=== PATIENT | female | born 1990 | race African-American/Black ===

== ENCOUNTER 2017-04-02 20:09 | Emergency (ER) | payer OTHER ==
[~2017-04-02] VITALS: Ht 162.6 cm; Wt 56.7 kg
[2017-04-02] MEDS ORDERED: PLAN B ONE-STE1.5 MG PO (21:06)
== END 2017-04-02 21:13 | disposition home or self-care (01) ==
LOC: ED 20:09
DX: N89.8 Other specified noninflammatory disorders of vagina (principal); Z98.890 Other specified postprocedural states
CPT/HCPCS: 84703; 87491; 87591; 99284

== ENCOUNTER 2017-12-24 00:16 | Observation (INO) | payer OTHER ==
[~2017-12-24] VITALS: Ht 162.6 cm; Wt 94.8 kg
--- OUTSIDE RECORDS SUMMARY | ~2017-12-24 | XMS | Clinical Summary ---
Demographics + + + | Address | [address] | | | [place] [address] | + + + | Home Phone | | + + + | Preferred Language | Unknown | + + + | Marital Status | Single | + + + | Zoroastrianism Affiliation | Unknown | + + + | Race | Unknown | + + + | Ethnic Group | Unknown | + + + Author + + + | Author | [facility] | | | and [place] | + + + | Organization | [facility] | | | and [place] | + + + | Address | Unknown | + + + | Phone | Unavailable | + + + Support + + +---------+ + | Name | Relationship | Address | Phone | + + +---------+ + | Staci Dalal | ECON | Unknown | | + + +---------+ + Care Team Providers + +------+ + | Care Clinical Laboratory Scientist Name | Role | Phone | + +------+ + | Dayna Cervantes MD | PP | Unavailable | + +------+ + Allergies + + + + + + | Active Allergy | Reactions | Severity | Noted | Comments | | | | | Date | | + + + + + + | Latex | Itching | Low | 01/02/20 | | | | | | 14 | | + + + + + + Current Medications + + + +---------+------+------+-------+ | Prescription | Sig. | Disp. | Refills | Star | End | Statu | | | | | | t | Date | s | | | | | | Date | | | + + + +---------+------+------+-------+ | diphenhydrAMINE | Apply topically 3 | | | | | Activ | | (BENADRYL EXTRA | times daily as | | | | | e | | STRENGTH) cream | needed for Itching. | | | | | | + + + +---------+------+------+-------+ | Promethazine-DM | Take 5-10 mLs by | 120 mL | 0 | 07/1 | | Activ | | (PROMETHAZINE-DEXTRO | mouth 4 times daily | | | 3/20 | | e | | METHORPHAN) 6.25-15 | as needed for Cough. | | | 17 | | | | mg/5 mL liquid | | | | | | | + + + +---------+------+------+-------+ | pseudoePHEDrine | Take 1 tablet by | 60 | 0 | 07/1 | | Activ | | (SUDAFED) 60 MG | mouth every 6 hours | tablet | | 11/20 | | e | | tablet | as needed for | | | 17 | | | | | Congestion. | | | | | | + + + +---------+------+------+-------+ Active Problems + + + | Problem | Noted Date | + + + | Fever | 11/11/2012 | + + + | PELVIC INFLAMMATORY DISEASE, ACUTE | 02/13/2012 | + + + Social History + + + +--------+ + | Tobacco Use | Types | Packs/Day | Years | Date | | | | | Used | | + + + +--------+ + | Former Smoker | Cigarettes | | | Quit: 09/11/2011 | + + + +--------+ + + +---+---+---+ | Smokeless Tobacco: | | | | | Never Used | | | | + +---+---+---+ + + +---------+ + | Alcohol Use | Drinks/We | oz/Week | Comments | | | ek | | | + + +---------+ + | Yes | 1 | 0.6 | | | | Glasses | | | | | of wine | | | + + +---------+ + + + + | Sex Assigned at | Date Recorded | | | | + + + | Not on file | | + + + Last Filed Vital Signs + + + + | Vital Sign | Reading | Time Taken | + + + + | Blood Pressure | 141/86 | 03/15/20172029 PDT | + + + + | Pulse | 87 | 03/15/20172029 PDT | + + + + | Temperature | 36.9 C (98.5 F) | 03/15/20172034 PDT | + + + + | Respiratory Rate | 16 | 03/15/20172029 PDT | + + + + | Oxygen Saturation | 99% | 03/15/20172029 PDT | + + + + | Inhaled Oxygen | - | - | | Concentration | | | + + + + | Weight | 59 kg (130 lb) | 03/15/20172029 PDT | + + + + | Height | 162.6 cm (5' 4") | 08/29/2016 1309 PST | + + + + | Body Mass Index | 22.31 | 03/15/20172029 PDT | + + + + Plan of Treatment + + + + + | Health Maintenance | Due Date | Last Done | Comments | + + + + + | CERVICAL CANCER | | | | | SCREENING (PAP EVERY | 1 | | | | 3 YEARS 21-64 ) | | | | + + + + + | Vaccine: Influenza | | | | | (Season Ended) | 8 | | | + + + + + | Vaccine: | | 02/27/2014, 08/16/2006, | | | Dtap/Tdap/Td (7 - | 4 | 02/06/1996, Additional history | | | Td) | | exists | | + + + + + Results Not on filefrom Last 3 Months
--- OUTSIDE RECORDS SUMMARY | ~2017-12-24 | XMS | Clinical Summary ---
Demographics + + + | Address | [address] | | | [place] [address] | + + + | Home Phone | | + + + | Preferred Language | Unknown | + + + | Marital Status | Unknown | + + + | Taoist Affiliation | Unknown | + + + | Race | Unknown | + + + | Ethnic Group | Unknown | + + + Author + + + | Author | [facility] | + + + | Organization | [facility] | + + + | Address | Unknown | + + + | Phone | Unavailable | + + + Support +--------+ +---------+ + | Name | Relationship | Address | Phone | +--------+ +---------+ + | No,One | ECON | Unknown | | +--------+ +---------+ + Care Team Providers + +------+ + | Care Electrical Instrument Maker Name | Role | Phone | + +------+ + | GomezLisaoe Anna Marie MARC | PP | | + +------+ + Allergies Not on File Current Medications Not on file Active Problems Not on file Social History + +-------+ +--------+------+ | Tobacco Use | Types | Packs/Day | Years | Date | | | | | Used | | + +-------+ +--------+------+ | Never Assessed | | | | | + +-------+ +--------+------+ + + + | Sex Assigned at | Date Recorded | | | | + + + | Not on file | | + + + Plan of Treatment Not on file Results Not on filefrom Last 3 Months Insurance + +--------+ +------+-------+ + | Payer | Benefi | Subscriber | Type | Phone | Address | | | t Plan | ID | | | | | | / | | | | | | | Group | | | | | + +--------+ +------+-------+ + | MEDICAID | [employer] | xxxxxxxx | | | [address] | | | N | | | | [place] | | | [place] | | | | [phone] | | | [employer] | | | | | + +--------+ +------+-------+ + + +--------+ +--------+ + + | Guarantor Name | Accoun | Relation to | Date | Phone | Billing Address | | | t Type | Patient | of | | | | | | | | | | + +--------+ +--------+ + + | KRISTI HUMMEL | Person [birth year] Self [birth year] Home: | [address] | | | al/Fam | | 1990 | [phone] [place] [address] | | | brant | | | [phone] | | + +--------+ +--------+ + +"
[~2017-12-24 00:16] MED LIST: PLAN B ONE-STE1.5 MG PO
--- NOTE | 2017-12-24 05:06 | PR ---
[facility] [address] [facility] [place] [address] Signed AP Progress Notes Datetime Report Generated by CPN: 12/24/2017 05:06 Chief Complaint: very mild contractions, patient sleeping PHYSICAL EXAM: [id number] VITAL SIGNS: [id number] Vital Signs: Reviewed; Within Normal Limits EXAM: [id number] Dilatation: closed Effacement: 30 Station: -2 Contraction Comments: none seen MEMBRANES: [id number] Fetus A: [id number] FHR Baseline: 150 Variability: Moderate 6-25bpm Fetus A Comments: 1 episode decel into 70's about 0930, no more since then Fetus B: [id number] PROGRESS NOTES: [id number] Plan: Continue monitoring Signing Physician: Nina Bermeo MD Copies: ~ *Electronically Signed* 12/24/17 0506 NINA BERMEO MD PATIENT NAME: KRISTI HUMMEL PROGRESS NOTE DATE OF : 88 PHYSICIAN: NINA BERMEO MD RPT #: [id number] REPORT IS CONFIDENTIAL AND NOT TO BE RELEASED WITHOUT AUTHORIZATION
--- NOTE | 2017-12-24 09:00 | NUR ---
PT AWAKE IN BED, APPEARS VERY ANXIOUS, ROLLING BACK AND FORTH IN BED HOLDING ABDOMEN. BREATHING QUICKLY. KEEPS STATING "I WISH I KNEW WHAT THIS PAIN WAS FROM, WHY IS THIS HAPPENING." REPORTS 8/10 LOWER ABD PAIN. STATES IT INCREASES WITH MOVEMENT, COUGHING, DRINKING WATER, AND DURING UTERINE CONTRACTIONS. REPORTS OCCASION UTERINE CONTRACTIONS. NO VAGINAL BLEEDING OR DISCHARGE NOTED. PT TACHYCARIDIC, DR. BERMEO AWARE. PT DENIES NAUSEA AT THIS TIME. EXPRESSES CONCERN ABOUT HER 6 CHILDREN AT HOME WELL THE HEALTH OF HER CURRENT . PT REPOSITIONED WITH PILLOWS, GIVEN APPLE JUICE PER REQUEST. CALL LIGHT WITHIN REACH.
--- NOTE | 2017-12-24 09:08 | NUR ---
PT COMPLANING OF LOWER ABDO. PAIN. AND EYE PAIN. LET NURSE KNOW. FRESH WATER. TOOK ADDMIT VITALS. PUT MESH UNDERWEAR AND A PAIN ON HER, BECAUSE SHE WAS COMPLANING SHE WAS PEEING HERSELF WHEN SHE COUGHED.
--- NOTE | 2017-12-24 10:30 | NUR ---
CONTACTED DR. BERMEO TO NOTIFY HIM OF ABNORMAL LABS. RECIEVED ORDER FOR IV POTASSIUM.
--- NOTE | 2017-12-24 10:34 | NUR ---
IN PT ROOM TO ANSWER CALL LIGHT. STAND BY ASSIST TO THE BATHROOM AND REPOSITIONING IN BED. OBTAINED VITAL SIGNS AND REFILLED WATER. CALL LIGHT WITHIN REACH NO FURTHER REQUESTS AT THIS TIME.
--- NOTE | 2017-12-24 10:35 | NUR ---
PT HR AND TEMPERATURE NOT WITHIN NORMAL LIMITS. DICK VALLEJO NOTIFIED.
--- NOTE | 2017-12-24 10:50 | NUR ---
PT LYING IN BED ON RIGHT SIDE TALKING TO VISITOR. PT STATES CONTRACTIONS HAVE DECREASED WELL PAIN AND HEADACHE. DENIES NAUSEA. REPORTS THAT SHE IS VERY HOT AND SWEATING PROFUSELY. PT MEDICATED WITH PRN TYLENOL THIS AM, ROOM TEMP TURNED DOWN, PT GIVEN ICE PACK APPLIED TO NECK. CALL LIGHT WITHIN REACH.
--- NOTE | 2017-12-24 12:38 | NUR ---
PT SLEEPING VERY HARD UPON ENTERING ROOM, AWOKE TO TOUCH AND VERBAL STIMULI. PT MEDICATED WITH PO POTASSIUM. PT SBA TO RESTROOM AND BACK TO BED. PT ATE A COUPLE BITES OF BANANA BUT NOT INTERESTED IN LUNCH, DENIES NAUSEA. STATES HEADACHE IS STILL PRESENT, REPORTS LOWER ABD PAIN IMPROVED. TEMP 98.1 ORALLY. CALL LIGHT WITHIN REACH.
[2017-12-24] MEDS ORDERED: OSELTAMIVIR PHO75 MG PO (13:00)
[2017-12-24] MEDS ORDERED: PNV PRENATAL P1 EACH PO (13:02)
--- NOTE | 2017-12-24 13:52 | NUR ---
ASSISTED PT TO AND FROM RESTROOM. MOVING WITH LESS PAIN OVERALL THIS TIME. STILL REPORTING HEADACHE, STATED THAT ICE PACK TO HER NECK HELPED WITH HEADACHE PAIN MORE THAN TYLENOL. REMAINS AFEBRILE AT THIS TIME. CALL LIGHT WITHIN REACH.
--- NOTE | 2017-12-24 14:08 | NUR ---
IN PT ROOM TO DO VS. ASSISTED PT WITH REPOSTIONING IN BED. CALL LIGHT WITHIN REACH. NO FURTHER NEEDS EXPRESSED AT THIS TIME.
--- NOTE | 2017-12-24 17:19 | NUR ---
NOTIFIED DR. BERMEO OF 101.3 ORAL TEMP, STATED HE WOULD VISIT SHORTLY. MEDICATED PT WITH TYLENOL.
--- NOTE | 2017-12-24 19:06 | NUR ---
IN ROOM FOR REPORT, PT IS AWAKE IN BED WITH A VISITOR IN THE ROOM. PT DENIES NEEDS AT THIS TIME. CALL LIGHT IS WITHIN REACH.
--- NOTE | 2017-12-25 00:49 | NUR ---
PT IS RESTING WITH EYES CLOSED, RESPRIATIONS ARE EVEN AND NONLABORED. CALL LIGHT IS WITHIN REACH.
--- NOTE | 2017-12-25 01:19 | NUR ---
PT CALLED STATING SHE HAS HEARTBURN, ADVISED HER WE DO NOT HAVE ANY ORDERS FROM THE DR FOR HEARTBURN. PT WAS OK WITH TRYING MILK TO SEE IF IT WOULD HELP. PT DENIES FURTHER NEEDS AT THIS TIME.
--- NOTE | 2017-12-25 04:19 | NUR ---
PT IS RESTING WITH EYES CLOSED, RESPIRATIONS EVEN AND NONLABORED. CALL LIGHT IS WITHIN REACH.
--- NOTE | 2017-12-25 04:34 | NUR ---
MELITON ASSISTED PATIENT TO THE BATHROOM AND BSCK TO BED. ICE WATER REFILLED.
--- NOTE | 2017-12-25 08:02 | NUR ---
DURING HAND OFF REPORT PT REPORTS 6/10 HEADACHE PAIN AND PAIN WITH COUGHING. THIS RN TO BEDSIDE WITH MEDICATION. PT ASSISTED UP TO REST ROOM AND BACK TO BED. PT REPORTS THAT BABY IS MOVING THIS MORNING. ASSESSMENT DONE. MEDICATION GIVEN. PT DRINKING WATER AND HAS TEA AT BEDSIDE. WARM BLANKETS PROVIDED. NO ADDITIONAL REQUESTS OR COMPLAINTS AT THIS TIME.
--- NOTE | 2017-12-25 09:18 | NUR ---
THIS SHUTTLER CAR ASSISTED PATIENT FROM THE BED TO THE RESTROOM. 1 PERSON SBA. PATIENT IS NOW RESTING IN BED. PATIENT STATES THAT SHE IS WARM AND SWEATY AND STATES THE PAIN MEDICATION DOES THAT TO HER. FRESH ICE PACK TO HELP WITH THE WARMTH. FRESH ICE WATER. CALL LIGHT WITHIN REACH. NO OTHER NEEDS AT THIS TIME.
--- NOTE | 2017-12-25 10:12 | NUR ---
THIS RN TO ROOM TO CHECK ON PT. PT RESTING IN BED. AWAKENS TO VOICE. PT REPORTS IMPROVING PAIN NOW AT 2/10. PT REQEUSTS A SNACK BEFORE LUNCH. CRACKERS, APPLE SAUCE, AND CHEESE PROVIDED. PT STATES SHE HAS NO ADDITIONAL REQUESTS OR COMPLAINTS AT THIS TIME. BED RAILS UP. CALL LIGHT WITHIN REACH.
--- NOTE | 2017-12-25 11:19 | NUR ---
PT CALL LIGHT ON. PUMP ALARMING, IV FLUID BAG EMPTY. NEW BAG HUNG. PT RESTING WITH EYES CLOSED, RR = 16BPM. BED RAILS UP. CALL LIGHT WITHIN REACH.
--- NOTE | 2017-12-25 13:15 | NUR ---
FOCUSED ASSESSEMENT DUE. PT RESTING WITH EYES CLOSED, AWAKENS TO VOICE. PT REPORTING 2/10 PAIN THAT IS "MUCH BETTER." FOCUSSED ASSESSMENT DONE. PT STATES SHE IS GOING TO KEEP NAPPING AND HAS NO REQUESTS OR COMPLAINTS AT THIS TIME. RR = 16BPM. BED RAILS UP. CALL LIGHT WITHIN REACH.
--- NOTE | 2017-12-25 14:31 | NUR ---
THIS STRIKE OUT MACHINE OPERATOR SET UP SHOWER FOR PATIENT. PATIENT UP IN SHOWER. FRESH LINEN. FRESH ICE WATER. NO OTHER NEEDS AT THIS TIME.
--- NOTE | 2017-12-25 14:35 | NUR ---
PATIENT SITTING UP IN BED RESTING. CALL LIGHT IN REACH. NO OTHER NEEDS AT THIS TIME.
--- NOTE | 2017-12-25 16:29 | NUR ---
DR. SOMMERS CALLED ABOUT CONSULT.
--- NOTE | 2017-12-25 17:17 | NUR ---
MEDICATION AND ASSESSMENT DUE. THIS RN TO BEDSIDE. PT EATING DINNER. ASSESSMENT DONE. PT CONTINUES TO REPORT 6/10 HEADACHE PAIN. SEE MAR FOR MEDICATION GIVEN. MD TO BEDSIDE FOR CONSULT. BED RAILS UP. CALL LIGHT WITHIN REACH. PT TALKING WITH MD.
--- NOTE | 2017-12-25 18:32 | NUR ---
PATIENT SITTING UP IN BED. FRESH ICE WATER. CALL LIGHT WITHIN REACH. NO OTHER NEEDS AT THIS TIME.
--- NOTE | 2017-12-25 18:41 | NUR ---
PT CONTINUES TODAY WITH HEAD ACHES AND DEVLOPING COUGH. HOPITALIST CONSULT PLACED. LUNG SOUNDS CLEAR TODAY. PRN TYLENOL AND IBUPROFEN. PT AFEBRIAL TODAY. STAND BY ASSIST. PT IN 26TH WEEK OF . PT STATES CRAMPS HAVE RESOLVED AND BABY IS MOVING NORMALLY. USING CALL LIGHT APPROPRIATLY.
--- NOTE | 2017-12-25 19:10 | NUR ---
IN ROOM FOR REPORT, PT IS AWAKE IN BED AND DENIES NEEDS AT THIS TIME. CALL LIGHT IS WITHIN REACH.
--- NOTE | 2017-12-25 20:40 | NUR ---
ADMINISTERED PT'S EVENING MEDICATIONS, PT STATES SHE HAS NOT HAD ANY CRAMPING THIS EVENING AND FEELS HER PAIN IS MAINLY IN HER HEAD AND HER NOSE. SHE STATES HER NOSE FEELS DRY AND HAD A LITTLE BIT OF A BLOODY NOSE. ASKED PT IF SHE WOULD BE INTERESTED IN TRYING A SALINE NASAL SPRAY BUT SHE SAID SHE DISLIKES THEM. PT INFORMED THIS RN THAT SHE LEARNED HER DAUGHTER IS SICK AT THIS TIME AND VOMITING. SHE SAID SHE SAW HER LAST ON SUNDAY NIGHT BEFORE SHE BECAME ILL. SHE ALSO STATES HER SON VOMITED ONCE THE WEEK PRIOR BUT HAD NO OTHER SYMPTOMS. PT DENIES ANY VAGINAL DISCHARGE AND STATES THE BABY IS MOVING. PT DENIES NEEDS AT THIS TIME AND CALL LIGHT IS WITHIN REACH.
--- NOTE | 2017-12-25 23:02 | NUR ---
PT IS RESTING WITH EYES CLOSED, RESPIRATIONS ARE EVEN AND NONLABORED.
--- NOTE | 2017-12-25 23:49 | NUR ---
PT CALLED SAYING SHE HAS A HEADACHE. ADMINISTERED MOTRIN AND HELPED PT TO THE RESTROOM. PT DENIES FURTHER NEEDS AT THIS TIME.
--- NOTE | 2017-12-26 01:00 | NUR ---
PT IS RESTING WITH EYES CLOSED, RESPIRATIONS ARE EVEN AND NONLABORED.
--- NOTE | 2017-12-26 03:18 | NUR ---
PT WAS UP TO THE BATHROOM WITH HELP OF HER . SHE REPORTS HER HEADACHE IS ABOUT A 2/10 AND SHE DENIES DISCHARGE OR CONTRACTIONS AND BABY IS MOVING. PT STATES SHE IS HAVING "CRAZY DREAMS". PT DENIES NEEDS AT THIS TIME.
--- NOTE | 2017-12-26 04:50 | NUR ---
PT WAS UP FREQUENTLY THROUGH THE NIGHT VOIDING. SHE STATES HER HEADACHE IS IMPROVING AND IS NO LONGER IN THE BACK OF HER NECK, SHE IS RECEIVING PRN MOTRIN AND TYLENOL NEEDED. PT DENIES ABDOMINAL CRAMPING, N/V, AND IS TOLERATING PO INTAKE. PT ALSO REMAINED AFEBRILE THROUGH THE NIGHT.
--- NOTE | 2017-12-26 05:07 | NUR ---
PT IS RESTING WITH EYES CLOSED, RESPIRATIONS ARE EVEN AND NONLABORED.
--- NOTE | 2017-12-26 05:45 | NUR ---
HELPED PT TO RESTROOM AND ADMINISTERED MOTRIN FOR A HEADACHE. PT STATES SHE FEELS LIKE HER EYES ARE SWOLLEN THE RT MORE SO THAN THE LEFT. ADVISED HER TO BRING IT UP THE THR DR THIS MORNING. HER EYES DID NOT APPEAR RED AND THE PT HAS NOT RECEIVED ANY NEW MEDICATIONS THAT SHE COULD BE REACTING TO.
--- NOTE | 2017-12-26 07:50 | NUR ---
PT RESTING IN BED WITH EYES CLOSED, RESP EVEN AND UNLABORED. IV INFUSING WNL. CALL LIGHT WITHIN REACH.
--- NOTE | 2017-12-26 09:22 | NUR ---
PATIENT RELAXING IN BED. PATIENT REQUESTING TYLENOL. RN NOTIFIED. FRESH ICE WATER. CALL LIGHT WITHIN REACH. NO OTHER NEEDS AT THIS TIME.
--- NOTE | 2017-12-26 09:30 | NUR ---
PT AWAKE IN BED, ALERT AND ORIENTED. ASSESMENT COMPLETED. PT REPORTING SLIGHT HEADACHE, MEDICATED WITH TYLENOL BY CHARGE NURSE. DENIES ANY OTHER PAIN, NAUSEA OR CONCERNS. REPORTS THAT BABY IS MOVING WELL. IV INFUSING WNL, DRESSING CDI. UP TO RESTROOM INDEPENDENTLY. ATE BREAKFAST, SHARDA WELL. CALL LIGHT WITHIN REACH.
--- NOTE | 2017-12-26 10:45 | NUR ---
HUNG NEW BAG OF FLUIDS. PT UP TO RESTROOM AND BACK TO BED. DENIES NEEDS OR CONCERNS AT THIS TIME. CALL LIGHT WITHIN REACH.
--- NOTE | 2017-12-26 11:18 | NUR ---
TALKED WITH PATIENT AROUND 9:30 AM. SHE WAS RESTING IN BED. SHE ATE MOST OF HER SCRAMBLED EGGS AND 2 SLICES OF WW TOAST FOR BREAKFAST, THOUGH SHE WASN'T FOND OF THE TASTE. SHE IS NOW ON A REGULAR DIET. SHE SAID HER WEIGHT HAS BEEN STABLE. SHE EATS WELL AT [facility]. MEALS ARE PROVIDED. SHE SAID THEY HAVE GOOD FOOD. THEY HAVE PANCAKES OR WAFFLES 2 OR 3 TIMES A WEEK FOR BREAKFAST. SHE DOES NOT DRINK ENSURE OR BOOST. SHE IS NOT GOOD AT DRINKING WATER. HER WEIGHT HAS BEEN ABOUT THE SAME FOR SEVERAL YEARS. NO CHEWING OR SWALLOWING PROBLEMS REPORTED. NO CHANGES NEEDED AT THIS TIME, CONTINUE REGULAR DIET. WILL REMAIN AVAILABLE IF NEEDED.
--- NOTE | 2017-12-26 14:05 | NUR ---
PT RESTING IN BED, EYES CLOSED, RESP EVEN AND UNLABORED.
--- NOTE | 2017-12-26 16:16 | NUR ---
IV SL PER ORDERS. PT GIVEN ICE PACK PER REQUEST. CALL LIGHT WITHIN REACH. PT INDEPENDENT IN ROOM.
--- NOTE | 2017-12-26 16:41 | NUR ---
PATIENT SITTING UP IN BED WATCHING TV. PATIENT REQUESTED TYLENOL AND "UTERUS PILLS". RN NOTIFIED. CALL LIGHT WITHIN REACH. NO OTHER NEEDS AT THIS TIME.
--- NOTE | 2017-12-26 18:30 | NUR ---
PATIENT SITTING UP IN BED AND WATCHING TV. PATIENT STATES SHE HAS SOME SINUS ACHES, BUT THAT IS IT. CALL LIGHT WITHIN REACH. FRESH ICE WATER. NO OTHER NEEDS AT THIS TIME.
--- NOTE | 2017-12-26 20:00 | NUR ---
RECEIVED REPORT AT 1900, FOUND PT IN BED WITH FAMILY IN ROOM. PT DENIED ANY NEEDS AT THAT TIME.
--- NOTE | 2017-12-26 21:28 | NUR ---
FRESH WATER GIVEN. PT NEEDS NOTHING ELSE AT THIS TIME . I&OS DONE AND CHARTED.
--- NOTE | 2017-12-26 22:00 | NUR ---
V/S ARE WDL, ALL LOBES ARE CLEAR, PT STATED THAT HER BABY IS MOVING NORMALLY. PT HAS NO PAIN AT THIS TIME. URINE OUTPUT IS WDL.
--- NOTE | 2017-12-27 | NUR ---
PT IS SLEEPING AT THIS TIME.
--- NOTE | 2017-12-27 03:41 | NUR ---
PT CALLED COMPLAINING OF A HEADACHE, PRN TYLENOL WAS GIVEN. ALL LOBES ARE CLEAR, V/S ARE WDL, NO N/V, NO NEW CONCERNS AT THIS TIME. PT IS BACK IN BED.
--- NOTE | 2017-12-27 04:00 | NUR ---
PT IS SLEEPING AT THIS TIME.
--- NOTE | 2017-12-27 06:18 | NUR ---
PT SLEPT MOST OF THE NIGHT. V/S ARE WDL, NO N/V OR FEVER. ALL LOBES ARE CLEAR, FETUS IS MOVING WDL ACCORDING TO PT. URINE OUTPUT IS WDL. PT'S ONLY COMPLAINT WAS A HEADACHE FOR WHICH PRN TYLENOL WAS GIVEN. NO NEW CONCERNS SO FAR.
--- NOTE | 2017-12-27 07:00 | NUR ---
BEDSIDE HANDOFF REPORT RECEIVED FROM CIGAR SORTER RN. PT SLEEPING, LEFT UNDISTURBED.
--- NOTE | 2017-12-27 08:45 | NUR ---
PT RESTING IN BED. PT COMPLAINT OF HEADACHE, GIVEN 650 MG TYLENOL. PT ON ROOM AIR, LUNG SOUNDS CLEAR. PT DENIES NAUSEA, BOWEL TONES ACTIVE. IV SALINE LOCKED. PT WITH EDEMA TO BLE, NON PITTING, PULSES PALPBLE, DENIES NUMBNESS. PT WITH OCCASIONAL COUGH. PT ASKING ABOUT DISCHARGE TODAY, DISCUSSED PLAN OF CARE. PT DENIES OTHER NEEDS AT THIS TIME.
--- NOTE | 2017-12-27 10:05 | NUR ---
PT REQUESTING TO SHOWER BEFORE DISCHARGE. IV CATH REMOVED. PT GIVEN SUPPLIES FOR SHOWER. PT DENIES OTHER NEEDS AT THIS TIME.
--- NOTE | 2017-12-27 10:10 | NUR ---
PT IS CURRENTLY SHOWERING WILL RETURN TO DO VITALS
--- NOTE | 2017-12-27 10:40 | NUR ---
PT SHOWERED HERSELF AND IS NOW SITTING UP IN BED WITH CALL LIGHT IN REACH. PT ASKED FOR APPLE JUICE
[2018-01-18] MEDS ORDERED: COLACE100 MG PO (17:53)
== END 2017-12-27 11:00 | disposition home or self-care (01) ==
LOC: FBCO 00:16 → MS 07:40
PROVIDERS: ADMIT General Practice
DX: O99.89 Other specified diseases and conditions complicating pregnancy, childbirth and the puerperium (principal); R50.9 Fever, unspecified; R51 Headache; R11.2 Nausea with vomiting, unspecified; R10.9 Unspecified abdominal pain; O99.282 Endocrine, nutritional and metabolic diseases complicating pregnancy, second trimester; E87.6 Hypokalemia; E83.42 Hypomagnesemia; Z86.59 Personal history of other mental and behavioral disorders; Z3A.26 26 weeks gestation of pregnancy
CPT/HCPCS: 36415; 80051; 80053; 81001; 83735; 85025; 87070; 87088; 87205; 96360; 96361; 99214; G0378; J7120